=== PATIENT | female | born 1990 | race Caucasian/White ===

== ENCOUNTER 2016-04-19 10:11 | Emergency (ER) | payer MEDICAID ==
--- NOTE | 2016-04-19 10:34 | ER Document Report ---
ED Medical Screen (RME) - General Stated Complaint: VAGINAL BLEEDING Notes: , due november 11 onset: this am spotting, abdominal pressure occasionally denies cramping or abdominal pain, n/v OBGYN: does not have I have greeted and performed a rapid initial assessment of this patient. A comprehensive ED assessment and evaluation of the patient, analysis of test results and completion of the medical decision making process will be conducted by additional ED providers. TRAVEL OUTSIDE OF THE [place] IN LAST 30 DAYS: No - Related Data Allergies/Adverse Reactions: amoxicillin [Amoxicillin] Allergy (Severe, Verified 09/27/14 18:48) hives,severe diarrhea Past Medical History - Past Medical History Cardiac Medical History: Denies: Hx Pulmonary Embolism Pulmonary Medical History: Reports: Hx Asthma - as child Denies: Hx Sleep Apnea, Hx Tuberculosis Endocrine Medical History: Denies: Hx Hyperthyroidism, Hx Hypothyroidism GI Medical History: Reports: Hx Gastroesophageal Reflux Disease. Denies: Hx Hiatal Hernia, Hx Ulcer Psychiatric Medical History: Reports: Hx Bipolar Disorder Denies: Hx Depression, Hx Post Traumatic Stress Disorder, Hx Schizophrenia Infectious Medical History: Denies: Hx HIV Past Surgical History: Reports: Hx Section - Immunizations Hx Diphtheria, Pertussis, Tetanus Vaccination: Yes
[2016-04-19 10:35] VITALS: BP 116/78
[2016-04-19 11:41] LABS: ABSOLUTE LYMPHOCYTES (AUTO) 1.8 10^3/uL (0.5-4.7); ABSOLUTE MONOCYTES (AUTO) 0.5 10^3/uL (0.1-1.4); ABSOLUTE NEUT (AUTO) 5.6 10^3/uL (1.7-8.2); BASOPHILS % (AUTO) 0.3 % (0-2); EOSINOPHILS % (AUTO) 0.6 % (0-6); HEMATOCRIT 37.1 % (36.0-47.0); HEMOGLOBIN 12.8 g/dL (12.0-15.5); HGB HCT DIFFERENCE 1.3; LYMPHOCYTES % (AUTO) 22.7 % (13-45); MEAN CORPUSCULAR HEMOGLOBIN 30.6 pg (27.0-33.4); MEAN CORPUSCULAR HGB CONC 34.5 g/dL (32.0-36.0); MEAN CORPUSCULAR VOLUME 89 fl (80-97); MONOCYTES % (AUTO) 5.7 % (3-13); RED BLOOD COUNT 4.18 10^6/uL (3.72-5.28); SEGMENTED NEUTROPHILS % (AUTO) 70.7 % (42-78); WHITE BLOOD COUNT 7.9 10^3/uL (4.0-10.5)
[2016-04-19 11:57] LABS: APPEARANCE,URINE SLIGHTLY-CLOUDY; BILIRUBIN,URINE NEGATIVE (NEGATIVE); GLUCOSE, URINE NEGATIVE (NEGATIVE); KETONES,URINE TRACE mg/dL (NEGATIVE); LEUKOCYTE ESTERASE,URINE TRACE (NEGATIVE); NITRITE,URINE POSITIVE (NEGATIVE); PROTEIN,URINE NEGATIVE (NEGATIVE); URINE SPECIFIC GRAVITY 1.021; UROBILINOGEN,URINE NEGATIVE mg/dL (<2.0)
--- NOTE | 2016-04-19 13:37 | ER Document Report ---
ED GI/ - General Chief Complaint: Vaginal Pain Stated Complaint: VAGINAL BLEEDING Mode of Arrival: Ambulatory Information source: Patient Notes: Patient presents she for P1 complaining of lower pelvic abdominal pressure with vaginal spotting. Patient states pressure started yesterday with spotting today. Patient denies any urinary symptoms. Patient states she has not had an ultrasound to confirm this . TRAVEL OUTSIDE OF THE [place] IN LAST 30 DAYS: No - HPI Patient complains to provider of: Pelvic pain, Onset: Yesterday Timing/Duration: Gradual Quality of pain: Cramping Pain Level: 1 Context: Location: Pelvis Vaginal bleeding (Compared to normal period): Spotting Menstrual period history: Sexual history: Active Associated symptoms: denies: Dysuria, Fever, Nausea, Urinary hesitancy, Urinary frequency, Urinary retention, Urinary urgency, Vaginal discharge Exacerbated by: Denies Relieved by: Denies Similar symptoms previously: Yes Recently seen / treated by doctor: No - Related Data Allergies/Adverse Reactions: amoxicillin [Amoxicillin] Allergy (Severe, Verified 04/19/16 10:31) hives,severe diarrhea Past Medical History - General Information source: Patient Last Menstrual Period: currently - Social History Smoking Status: Never Smoker Chew tobacco use (# tins/day): No Frequency of alcohol use: None Drug Abuse: None Occupation: none Lives with: Family Family History: Reviewed & Not Pertinent Patient has suicidal ideation: No Patient has homicidal ideation: No - Past Medical History Cardiac Medical History: Denies: Hx Pulmonary Embolism Pulmonary Medical History: Reports: Hx Asthma - as child Denies: Hx Sleep Apnea, Hx Tuberculosis Endocrine Medical History: Denies: Hx Hyperthyroidism, Hx Hypothyroidism Renal/ Medical History: Denies: Hx Peritoneal Dialysis GI Medical History: Reports: Hx Gastroesophageal Reflux Disease. Denies: Hx Hiatal Hernia, Hx Ulcer Psychiatric Medical History: Reports: Hx Bipolar Disorder Denies: Hx Depression, Hx Post Traumatic Stress Disorder, Hx Schizophrenia Infectious Medical History: Denies: Hx HIV Past Surgical History: Reports: Hx Section - Immunizations Hx Diphtheria, Pertussis, Tetanus Vaccination: Yes Review of Systems - Review of Systems Constitutional: No symptoms reported. denies: Fever EENT: No symptoms reported Cardiovascular: No symptoms reported. denies: Chest pain Respiratory: No symptoms reported. denies: Cough, Short of breath Gastrointestinal: Abdominal pain - Lower pelvic cramping Genitourinary: No symptoms reported. denies: Dysuria, Flank pain Female Genitourinary: , Vaginal bleeding - Spotting. denies: Vaginal discharge Musculoskeletal: No symptoms reported. denies: Back pain Skin: No symptoms reported Hematologic/Lymphatic: No symptoms reported Neurological/Psychological: No symptoms reported Physical Exam - Vital signs Vitals: Temp Pulse Resp BP Pulse Ox 98 F 90 16 116/78 100 04/19/16 10:31 04/19/16 10:31 04/19/16 10:31 04/19/16 10:04/19/16 10:31 - General General appearance: Appears well, Alert In distress: None - HEENT Head: Normocephalic Eyes: Normal Conjunctiva: Normal Nasal: Normal Mouth/Lips: Normal Mucous membranes: Normal Neck: Normal, Supple. No: Lymphadenopathy - Respiratory Respiratory status: No respiratory distress Chest status: Nontender Breath sounds: Normal. No: Rales, Rhonchi, Stridor, Wheezing Chest palpation: Normal - Cardiovascular Rhythm: Regular Heart sounds: S1 appreciated, S2 appreciated Murmur: No - Abdominal Inspection: Normal Distension: No distension Bowel sounds: Normal Tenderness: Tender - Mild suprapubic Organomegaly: No organomegaly - Back Back: Normal, Nontender. No: CVA tenderness - Extremities General upper extremity: Normal inspection, Normal strength General lower extremity: Normal inspection, Normal strength - Neurological Neuro grossly intact: Yes Cognition: Normal Ozan Coma Scale Eye Opening: Spontaneous Crispin Coma Scale Verbal: Oriented Ozan Coma Scale Motor: Obeys Commands Ozan Coma Scale Total: 15 - Psychological Associated symptoms: Normal affect, Normal mood - Skin Skin Temperature: Warm Skin Moisture: Dry Skin Color: Normal Course - Re-evaluation Re-evalutation: 04/19/16 14:[address] Cavazos regarding patient presentation, agrees with plan of care. 04/19/16 15:50 Patient denies any concerns about possible sexually-transmitted infection. Offered pelvic examination, patient declines. Consulted with Dr. Cavazos regarding ultrasound report findings. Recommends outpatient follow-up with OB/ COAT AGENT provider for follow-up. - Vital Signs Vital signs: Temp Pulse Resp BP Pulse Ox 98 F 90 16 116/78 100 04/19/16 10:31 04/19/16 10:31 04/19/16 10:04/19/16 10:04/19/16 10:31 - Laboratory Result Diagrams: 04/19/16 11:20 Laboratory results interpreted by me: 04/19/16 04/19/16 11:20 11:20 Beta HCG, Quant 2026.50 H Urine Ketones TRACE H Urine Blood MODERATE H Urine Nitrite POSITIVE H Ur Leukocyte Esterase TRACE H 04/19/16 15:50 Labs- Entire Visit 04/19/16 04/19/16 04/19/16 11:20 11:20 11:20 WBC 7.9 RBC 4.18 Hgb 12.8 Hct 37.1 MCV 89 MCH 30.6 MCHC 34.5 RDW 13.0 Plt Count 242 Seg Neutrophils % 70.7 Lymphocytes % 22.7 Monocytes % 5.7 Eosinophils % 0.6 Basophils % 0.3 Absolute Neutrophils 5.6 Absolute Lymphocytes 1.8 Absolute Monocytes 0.5 Absolute Eosinophils 0.0 Absolute Basophils 0.0 Beta HCG, Quant 2026.50 H Total Beta HCG POSITIVE Urine Color Urine Appearance Urine pH Ur Specific [place] Urine Protein Urine Glucose (UA) Urine Ketones Urine Blood Urine Nitrite Urine Bilirubin Urine Urobilinogen Ur Leukocyte Esterase Urine WBC (Auto) Urine RBC (Auto) Urine Bacteria (Auto) Squamous Epi Cells Auto Urine Mucus (Auto) Urine Ascorbic Acid Blood Type A NEGATIVE Antibody Screen NEGATIVE Rhogam Indicated RHOGAM REQUESTED 04/19/16 11:20 WBC RBC Hgb Hct MCV MCH MCHC RDW Plt Count Seg Neutrophils % Lymphocytes % Monocytes % Eosinophils % Basophils % Absolute Neutrophils Absolute Lymphocytes Absolute Monocytes Absolute Eosinophils Absolute Basophils Beta HCG, Quant Total Beta HCG Urine Color YELLOW Urine Appearance SLIGHTLY-CLOUDY Urine pH 5.0 Ur Specific [place] 1.021 Urine Protein NEGATIVE Urine Glucose (UA) NEGATIVE Urine Ketones TRACE H Urine Blood MODERATE H Urine Nitrite POSITIVE H Urine Bilirubin NEGATIVE Urine Urobilinogen NEGATIVE Ur Leukocyte Esterase TRACE H Urine WBC (Auto) 3 Urine RBC (Auto) 1 Urine Bacteria (Auto) 3+ Squamous Epi Cells Auto 3 Urine Mucus (Auto) FEW Urine Ascorbic Acid NEGATIVE Blood Type Antibody Screen Rhogam Indicated - Diagnostic Test Radiology reviewed: Reports reviewed Discharge - Discharge Clinical Impression: Intrauterine in Qualifiers: Fetus number: single or unspecified fetus Qualified Code(s): O36.4XX0 - Maternal care for intrauterine , not applicable or unspecified UTI (urinary tract infection) Qualifiers: Urinary tract infection type: site unspecified Hematuria presence: with hematuria Qualified Code(s): N39.0 - Urinary tract infection, site not specified Condition: Stable Disposition: HOME, SELF-CARE Instructions: Nitrofurantoin ([facility]), Urinary Tract Infection ([facility]), Miscarriage Impending ([facility]), Rhogam ([facility]) Additional Instructions: Return immediately for any new or worsening symptoms Followup with your DEPUTY CLERK provider, call Friday to make a followup appointment Urine culture is pending, we will call if you need any different treatment Prescriptions: Nitrofurantoin/Nitrofuran Mac [Macrobid 100 mg Capsule] 1 tab PO BID #14 capsule Referrals: ARCHANA NERI FNP-C [Primary Care Provider] - [facility] - Follow up as needed [facility] [Provider Group] - 04/22/16
[2016-04-19] MEDS ORDERED: NITROFURANTOIN MONOHYD/M-CRYST 100 MG CAPSULE PO ONE (15:57)
== END 2016-04-19 16:15 | disposition left against medical advice (07) ==
LOC: ER 10:11
DX: O36.4XX0 Maternal care for intrauterine death, not applicable or unspecified (principal); N39.0 Urinary tract infection, site not specified; R10.2 Pelvic and perineal pain; N93.9 Abnormal uterine and vaginal bleeding, unspecified
CPT/HCPCS: 99281; 86900; 86901; 36415; 87086; 86850; 84702; 85025; 87088; 81001; 87186; 76817; 93976; J2790

== ENCOUNTER → 2016-12-13 | Outpatient (CLI) | payer MEDICAID ==
[2016-12-13 08:16] LABS: URINE PROTEIN 11.7 mg/dL (<12)
[2016-12-13 08:25] LABS: ABSOLUTE EOSINOPHILS # (AUTO) 0.1 10^3/uL (0.0-0.6); ABSOLUTE LYMPHOCYTES (AUTO) 2.2 10^3/uL (0.5-4.7); ABSOLUTE MONOCYTES (AUTO) 0.8 10^3/uL (0.1-1.4); ABSOLUTE NEUT (AUTO) 7.4 10^3/uL (1.7-8.2); ALANINE AMINOTRANSFERASE 11 U/L (9-52); ALBUMIN 3.5 g/dL (3.5-5.0); ALKALINE PHOSPHATASE 54 U/L (38-126); ANION GAP 10 (5-19); ASPARTATE AMINO TRANSFERASE 15 U/L (14-36); BASOPHILS % (AUTO) 0.1 % (0-2); BILIRUBIN,DIRECT 0.2 mg/dL (0.0-0.4); BILIRUBIN,TOTAL 0.2 mg/dL (0.2-1.3); BLOOD UREA NITROGEN 10 mg/dL (7-20); CALCIUM 9.1 mg/dL (8.4-10.2); CARBON DIOXIDE 18 mmol/L (22-30); CHLORIDE 109 mmol/L (98-107); CREATININE RESULT 0.49 mg/dL (0.52-1.25); EOSINOPHILS % (AUTO) 0.9 % (0-6); GLUCOSE 102 mg/dL (75-110); HEMATOCRIT 29.1 % (36.0-47.0); HEMOGLOBIN 10.7 g/dL (12.0-15.5); LDH 258 U/L (313-618); LYMPHOCYTES % (AUTO) 21.3 % (13-45); MEAN CORPUSCULAR HEMOGLOBIN 33.8 pg (27.0-33.4); MEAN CORPUSCULAR HGB CONC 36.8 g/dL (32.0-36.0); MEAN CORPUSCULAR VOLUME 92 fl (80-97); MONOCYTES % (AUTO) 7.3 % (3-13); POTASSIUM 3.8 mmol/L (3.6-5.0); RED BLOOD COUNT 3.17 10^6/uL (3.72-5.28); SEGMENTED NEUTROPHILS % (AUTO) 70.4 % (42-78); SODIUM 137.1 mmol/L (137-145); TOTAL PROTEIN 6.5 g/dL (6.3-8.2); URIC ACID 2.8 mg/dL (2.5-6.2); WHITE BLOOD COUNT 10.5 10^3/uL (4.0-10.5)
== END ==
LOC: OCH 07:49
DX: Z34.82 Encounter for supervision of other normal pregnancy, second trimester (principal)
CPT/HCPCS: 36415; 80053; 83615; 84156; 84550; 85025

== ENCOUNTER 2016-12-14 12:02 | Outpatient (CLI) | payer MEDICAID ==
[2016-12-14 12:52] LABS: APPEARANCE,URINE SLIGHTLY-CLOUDY; BILIRUBIN,URINE NEGATIVE (NEGATIVE); GLUCOSE, URINE NEGATIVE (NEGATIVE); KETONES,URINE NEGATIVE (NEGATIVE); LEUKOCYTE ESTERASE,URINE NEGATIVE (NEGATIVE); NITRITE,URINE NEGATIVE (NEGATIVE); PROTEIN,URINE NEGATIVE (NEGATIVE); URINE SPECIFIC GRAVITY 1.019; UROBILINOGEN,URINE NEGATIVE mg/dL (<2.0)
[2016-12-14 13:05] LABS: URINE BARBITURATES SCREEN NEGATIVE; URINE METHADONE SCREEN NEGATIVE; URINE OPIATES LOW NEGATIVE; URINE PHENCYCLIDINE SCREEN NEGATIVE
--- NOTE | 2016-12-14 13:46 | RADIOLOGY REPORT (SQ) ---
EXAM DESCRIPTION: U/S OB LIMITED COMPLETED DATE/TIME: 12/14/2016 1:18 pm REASON FOR STUDY: Abdominal trauma, check placenta wellbeing COMPARISON: None. TECHNIQUE: Limited transabdominal grayscale ultrasound for evaluation of specific requested obstetri tanika parameters. LIMITATIONS: None. FINDINGS: Anterior grade 1 placenta. Fetus breech presentation. heart rate 130. Cervix 3.0 cm and closed. IMPRESSION: LIMITED OBSTETRICAL ULTRASOUND WITH MEASURED PARAMETERS DELINEATED ABOVE. Trimester of : Second trimester - 13 weeks 1 day to 27 weeks 6 days. TECHNICAL DOCUMENTATION: JOB ID: [id number] [employer]- All Rights Reserved
== END 2016-12-14 14:05 | disposition home or self-care (01) ==
LOC: LC 12:02
PROVIDERS: ATTEND Obstetrics & Gynecology
PROC: 4A1HXCZ Monitoring of Products of Conception, Cardiac Rate, External Approach (ICD-10-PCS; principal; 2016-12-14)
DX: O36.8120 Decreased fetal movements, second trimester, not applicable or unspecified (principal); O9A.212 Injury, poisoning and certain other consequences of external causes complicating pregnancy, second trimester; S30.1XXA Contusion of abdominal wall, initial encounter; X58.XXXA Exposure to other specified factors, initial encounter; Z3A.21 21 weeks gestation of pregnancy
CPT/HCPCS: 76815; 80307; 81001

== ENCOUNTER 2017-01-27 14:36 | Emergency (ER) | payer MEDICAID ==
[2017-01-27] MEDS ORDERED: NORMAL SALINE 1000 ML 1,000 ML IV ONE ×2 (15:04→16:34)
--- NOTE | 2017-01-27 15:06 | ER Document Report ---
ED Medical Screen (RME) - General Chief Complaint: Chest Pain Stated Complaint: BLURRED VISION, HEADACHE Time Seen by Provider: 01/27/17 15:03 Notes: Patient states she has a high risk . She states she has had preeclampsia in the past. She is currently 27 weeks . She woke up this morning with racing heartbeat, blurry vision, and headache. TRAVEL OUTSIDE OF THE [place] IN LAST 30 DAYS: No - Related Data Allergies/Adverse Reactions: amoxicillin [Amoxicillin] Allergy (Severe, Verified 01/27/17 14:45) hives,severe diarrhea Home Medications: Current Home Medications Aspirin 81 mg PO DAILY 01/27/17 [History] Past Medical History - Past Medical History Cardiac Medical History: Denies: Hx Pulmonary Embolism Pulmonary Medical History: Reports: Hx Asthma - as child Denies: Hx Sleep Apnea, Hx Tuberculosis Endocrine Medical History: Denies: Hx Hyperthyroidism, Hx Hypothyroidism Renal/ Medical History: Denies: Hx Peritoneal Dialysis GI Medical History: Reports: Hx Gastroesophageal Reflux Disease. Denies: Hx Hiatal Hernia, Hx Ulcer Psychiatric Medical History: Reports: Hx Bipolar Disorder Denies: Hx Depression, Hx Post Traumatic Stress Disorder, Hx Schizophrenia Infectious Medical History: Denies: Hx HIV Past Surgical History: Reports: Hx Section - Immunizations Hx Diphtheria, Pertussis, Tetanus Vaccination: Yes Physical Exam - Vital signs Vitals: Temp Pulse Resp BP Pulse Ox 99.2 F 120 H 16 125/70 99 01/27/17 14:47 01/27/17 14:47 01/27/17 14:47 01/27/17 14:47 01/27/17 14:47 Course - Vital Signs Vital signs: Temp Pulse Resp BP Pulse Ox 99.2 F 120 H 16 125/70 99 01/27/17 14:47 01/27/17 14:47 01/27/17 14:47 01/27/17 14:47 01/27/17 14:47
[2017-01-27 16:05] LABS: AMORPHOUS SEDIMENT,URINE TRACE /HPF; APPEARANCE,URINE CLOUDY; BILIRUBIN,URINE NEGATIVE (NEGATIVE); GLUCOSE, URINE NEGATIVE (NEGATIVE); KETONES,URINE NEGATIVE (NEGATIVE); LEUKOCYTE ESTERASE,URINE TRACE (NEGATIVE); NITRITE,URINE NEGATIVE (NEGATIVE); PROTEIN,URINE NEGATIVE (NEGATIVE); URINE SPECIFIC GRAVITY 1.026; UROBILINOGEN,URINE NEGATIVE mg/dL (<2.0)
[2017-01-27 16:09] LABS: ABSOLUTE EOSINOPHILS # (AUTO) 0.1 10^3/uL (0.0-0.6); ABSOLUTE LYMPHOCYTES (AUTO) 1.8 10^3/uL (0.5-4.7); ABSOLUTE MONOCYTES (AUTO) 0.9 10^3/uL (0.1-1.4); ABSOLUTE NEUT (AUTO) 9.3 10^3/uL (1.7-8.2); BASOPHILS % (AUTO) 0.4 % (0-2); EOSINOPHILS % (AUTO) 0.7 % (0-6); HEMATOCRIT 30.5 % (36.0-47.0); HGB HCT DIFFERENCE 2.5; MEAN CORPUSCULAR HEMOGLOBIN 32.8 pg (27.0-33.4); MEAN CORPUSCULAR VOLUME 91 fl (80-97); MONOCYTES % (AUTO) 7.2 % (3-13); RED BLOOD COUNT 3.35 10^6/uL (3.72-5.28); RED CELL DISTRIBUTION WIDTH 12.9 % (11.5-14.0); SEGMENTED NEUTROPHILS % (AUTO) 76.7 % (42-78); WHITE BLOOD COUNT 12.1 10^3/uL (4.0-10.5)
--- NOTE | 2017-01-27 16:09 | ER Document Report ---
ED General - General Chief Complaint: Chest Pain Stated Complaint: BLURRED VISION, HEADACHE Time Seen by Provider: 01/27/17 15:03 Notes: The patient is a 26-year-old female, 27 weeks presents after she was waking up with fatigue and a headache. In addition, when she has worsening headache, she notices slightly blurry vision. She has had preeclampsia in the past and is worried that she has it again. Patient was also having mild shortness of breath, but this has resolved. She denies current chest pain, cough, fevers, hemoptysis, focal numbness, tingling, ataxia, neck stiffness, dysuria, abdominal pain or rash. TRAVEL OUTSIDE OF THE [place] IN LAST 30 DAYS: No - Related Data Allergies/Adverse Reactions: amoxicillin [Amoxicillin] Allergy (Severe, Verified 01/27/17 14:45) hives,severe diarrhea Home Medications: Current Home Medications Aspirin 81 mg PO DAILY 01/27/17 [History] Past Medical History - General Information source: Patient - Social History Smoking Status: Unknown if Ever Smoked Family History: Reviewed & Not Pertinent Patient has suicidal ideation: No Patient has homicidal ideation: No - Past Medical History Cardiac Medical History: Denies: Hx Pulmonary Embolism Pulmonary Medical History: Reports: Hx Asthma - as child Denies: Hx Sleep Apnea, Hx Tuberculosis Endocrine Medical History: Denies: Hx Hyperthyroidism, Hx Hypothyroidism Renal/ Medical History: Denies: Hx Peritoneal Dialysis GI Medical History: Reports: Hx Gastroesophageal Reflux Disease. Denies: Hx Hiatal Hernia, Hx Ulcer Psychiatric Medical History: Reports: Hx Bipolar Disorder Denies: Hx Depression, Hx Post Traumatic Stress Disorder, Hx Schizophrenia Infectious Medical History: Denies: Hx HIV Past Surgical History: Reports: Hx Section - Immunizations Hx Diphtheria, Pertussis, Tetanus Vaccination: Yes Review of Systems - Review of Systems Notes: REVIEW OF SYSTEMS: CONSTITUTIONAL: -fevers, -chills EENT: -eye pain, -difficulty swallowing, -nasal congestion CARDIOVASCULAR:-chest pain, -syncope. RESPIRATORY: -cough, -SOB GASTROINTESTINAL: -abdominal pain, - nausea, -vomiting, -diarrhea GENITOURINARY: -dysuria, -hematuria MUSCULOSKELETAL: -back pain, -neck pain SKIN: -rash or skin lesions. HEMATOLOGIC: -easy bruising or bleeding. LYMPHATIC: -swollen, enlarged glands. NEUROLOGICAL: -altered mental status or loss of consciousness, +headache, - neurologic symptoms PSYCHIATRIC: -anxiety, -depression. ALL OTHER SYSTEMS REVIEWED AND NEGATIVE. Physical Exam - Vital signs Vitals: Temp Pulse Resp BP Pulse Ox 99.2 F 120 H 16 125/70 99 01/27/17 14:47 01/27/17 14:47 01/27/17 14:47 01/27/17 14:47 01/27/17 14:47 - Notes Notes: PHYSICAL EXAMINATION: GENERAL: Well-appearing, well-nourished and in no acute distress. HEAD: Atraumatic, normocephalic. EYES: Pupils equal round and reactive to light, extraocular movements intact, sclera anicteric, conjunctiva are normal. ENT: nares patent, oropharynx clear without exudates. Moist mucous membranes. NECK: Normal range of motion, supple without lymphadenopathy LUNGS: Breath sounds clear to auscultation bilaterally and equal. No wheezes rales or rhonchi. HEART: Regular rate and rhythm without murmurs ABDOMEN: Soft, nontender, normoactive bowel sounds. Gravid abdomen. No guarding , no rebound. No masses appreciated. EXTREMITIES: Normal range of motion, no pitting or edema. No cyanosis. NEUROLOGICAL: Cranial nerves grossly intact. Normal speech, normal gait. Normal sensory and motor exams. PSYCH: Normal mood, normal affect. SKIN: Warm, Dry, normal turgor, no rashes or lesions noted. Course - Re-evaluation Re-evalutation: 01/27/17 18:11 Pt's headache and blurry vision completely resolved after Reglan , Benadryl and fluids. She has had this multiple times in the past and her headache is not consistent with meningitis, SAH, ICH or central venous thrombosis at this time due to lack of neuro symptoms. Her chest x-ray does not show any evidence of acute changes. Urine does not show any protein, she is not hypertensive, and her LFTs are normal. She has no signs of preeclampsia at this time. heart tones are normal. Pt's initial tachycardia resolved after IVF and pain control. She appeared anxious and this may also be leading to her slight tachycardia. Pt is not having any chest pain, shortness of breath or hypoxia to suggest PE. Spoke to patient about initial concern and signs to observe for PE. She has an appointment with [facility] morning. Given very strict return precautions and she understands. - Vital Signs Vital signs: Temp Pulse Resp BP Pulse Ox 99.2 F 120 H 14 104/65 100 01/27/17 14:47 01/27/17 14:47 01/27/17 18:22 01/27/17 18:22 01/27/17 18:22 - Laboratory Result Diagrams: 01/27/17 15:35 01/27/17 15:35 Laboratory results interpreted by me: 01/27/17 01/27/17 01/27/17 15:35 15:35 15:35 WBC 12.1 H RBC 3.35 L Hgb 11.0 L Hct 30.5 L Absolute Neutrophils 9.3 H Chloride 108 H Carbon Dioxide 21 L Creatinine 0.48 L Ur Leukocyte Esterase TRACE H Urine Ascorbic Acid 40 H - Diagnostic Test Radiology reviewed: Image reviewed, Reports reviewed Radiology results interpreted by me: CXR: NAD - EKG Interpretation by Me EKG shows normal: Sinus rhythm, [place], Intervals, QRS Complexes, ST-T Waves Rate: Tachycardia Discharge - Discharge Clinical Impression: Headache Qualifiers: Headache type: unspecified Headache chronicity pattern: unspecified pattern Intractability: not intractable Qualified Code(s): R51 - Headache Condition: Stable Disposition: HOME, SELF-CARE Additional Instructions: HEADACHE: The physician does not feel that the headache you are experiencing has a serious underlying cause. Most headaches are due to emotional stress, with resultant muscle tension (tension headache). Occasionally, headaches are secondary to changes in the blood vessels of the scalp (vascular headache and migraine headache). Sometimes, a headache is the first symptom of another developing illness, such as a viral infection. You have no evidence of stroke, bleeding, meningitis, or other serious cause of your headache. The treatment of headaches varies with the severity and cause of the pain. Not all headaches need pain shots. In fact, there is evidence that using narcotics for headaches may make them worse in the long run. The physician will determine the therapy that's in your best interest. If you develop a fever, if the headache is different from any you've previously experienced, or if the headache progressively worsens, then call your physician at once or go to the emergency room. REGLAN (METOCLOPRAMIDE): Reglan has been prescribed. This medicine affects the stomach and intestines. It can be used to treat nausea and vomiting, to prevent reflux of stomach acid up into the esophagus, or to increase the contractions of the stomach and intestines. It is often prescribed for esophagitis, and for paralysis of the stomach in diabetics. Reglan can cause either mild restlessness or drowsiness. You should contact the doctor at once if you become extremely restless, anxious, or cannot sleep, or if you develop uncontrollable motions of the lips, tongue, or jaw. Do not take alcohol with this medicine. Do not drive or operate machinery until you have been taking this medicine long enough to know how it affects you. Call the doctor if you develop abdominal pains, lightheadedness, black stool, or blood in the stool or vomitus. USE OF DIPHENHYDRAMINE: Diphenhydramine (Benadryl) is an antihistamine and has been recommended to help treat your headache and to prevent side effects of other medications used to treat headaches. The medication can be repeated four times daily. Age Elixir (12.5 mg/tsp) 25 mg pill adult 1-2 tabs Antihistamines may cause drowsiness, especially with the first dose. Do not operate machinery or drive while under the effects of the medication. Do not combine the medication with alcohol, or with any other medication without talking to your doctor. FOLLOW-UP CARE: If you have been referred to a physician for follow-up care, call the physician s office for an appointment as you were instructed or within the next two days. If you experience worsening or a significant change in your symptoms, notify the physician immediately or return to the Emergency Department at any time for re-evaluation. Referrals: GABBY PANIAGUA DO [SISSY DAMIAN] - Follow up as needed
[2017-01-27 16:31] LABS: ALANINE AMINOTRANSFERASE 16 U/L (9-52); ALBUMIN 3.8 g/dL (3.5-5.0); ALKALINE PHOSPHATASE 68 U/L (38-126); ANION GAP 9 (5-19); ASPARTATE AMINO TRANSFERASE 19 U/L (14-36); BILIRUBIN,DIRECT 0.2 mg/dL (0.0-0.4); BILIRUBIN,TOTAL 0.2 mg/dL (0.2-1.3); BLOOD UREA NITROGEN 11 mg/dL (7-20); CALCIUM 8.8 mg/dL (8.4-10.2); CARBON DIOXIDE 21 mmol/L (22-30); CHLORIDE 108 mmol/L (98-107); CREATININE RESULT 0.48 mg/dL (0.52-1.25); GLUCOSE 109 mg/dL (75-110); POTASSIUM 3.8 mmol/L (3.6-5.0); SODIUM 137.9 mmol/L (137-145); TOTAL PROTEIN 6.8 g/dL (6.3-8.2)
[2017-01-27] MEDS ORDERED: DIPHENHYDRAMINE HCL 50 MG/ML VIAL IV ONE (16:34)
[2017-01-27] MEDS ORDERED: METOCLOPRAMIDE HCL INJ/PF 10 MG/2 ML SDV IV ONE (16:34)
--- NOTE | 2017-01-27 17:07 | RADIOLOGY REPORT (SQ) ---
EXAM DESCRIPTION: CHEST SINGLE VIEW COMPLETED DATE/TIME: 01/27/2017 4:56 pm REASON FOR STUDY: SOB COMPARISON: None. EXAM PARAMETERS: NUMBER OF VIEWS: One view. TECHNIQUE: Single frontal radiographic view of the chest acquired. RADIATION DOSE: NA LIMITATIONS: None. FINDINGS: LUNGS AND PLEURA: No opacities, masses or pneumothorax. No pleural effusion. MEDIASTINUM AND HILAR STRUCTURES: No masses. Contour normal. HEART AND VASCULAR STRUCTURES: Heart normal in size. Normal vasculature. BONES: No acute findings. HARDWARE: None in the chest. OTHER: No other significant finding. IMPRESSION: NO ACUTE RADIOGRAPHIC FINDING IN THE CHEST. COMMENT: Patient known . Abdominal shielding used. TECHNICAL DOCUMENTATION: JOB ID: [id number] [employer]- All Rights Reserved
[2017-01-27 18:27] VITALS: BP 104/65
--- NOTE | 2017-01-28 09:39 | EKG REPORT ---
SEVERITY:- BORDERLINE ECG - SINUS TACHYCARDIA PROBABLE LEFT ATRIAL ABNORMALITY : Confirmed by: Alfonso Jorgensen 28-Jan-2017 09:38:40
== END 2017-01-27 18:33 | disposition home or self-care (01) ==
LOC: ER 14:36
DX: O26.892 Other specified pregnancy related conditions, second trimester (principal); R51 Headache; H53.8 Other visual disturbances; R00.0 Tachycardia, unspecified; O26.812 Pregnancy related exhaustion and fatigue, second trimester; Z3A.27 27 weeks gestation of pregnancy; Z87.59 Personal history of other complications of pregnancy, childbirth and the puerperium; Z88.0 Allergy status to penicillin
CPT/HCPCS: 93005; 99285; 96361; 96374; 96375; 36415; 85025; 80053; 81001; 71010; 93010; J1200; J2765; J7030

== ENCOUNTER 2017-02-04 16:21 | Emergency (ER) | payer MEDICAID ==
[2017-02-04 17:59] LABS: ABSOLUTE EOSINOPHILS # (AUTO) 0.1 10^3/uL (0.0-0.6); ABSOLUTE LYMPHOCYTES (AUTO) 2.3 10^3/uL (0.5-4.7); ABSOLUTE MONOCYTES (AUTO) 0.9 10^3/uL (0.1-1.4); ABSOLUTE NEUT (AUTO) 7.3 10^3/uL (1.7-8.2); BASOPHILS % (AUTO) 0.2 % (0-2); EOSINOPHILS % (AUTO) 0.8 % (0-6); HEMATOCRIT 31.3 % (36.0-47.0); HEMOGLOBIN 11.1 g/dL (12.0-15.5); LYMPHOCYTES % (AUTO) 21.6 % (13-45); MEAN CORPUSCULAR HEMOGLOBIN 32.6 pg (27.0-33.4); MEAN CORPUSCULAR HGB CONC 35.7 g/dL (32.0-36.0); MEAN CORPUSCULAR VOLUME 91 fl (80-97); MONOCYTES % (AUTO) 8.4 % (3-13); RED BLOOD COUNT 3.42 10^6/uL (3.72-5.28); RED CELL DISTRIBUTION WIDTH 12.8 % (11.5-14.0); WHITE BLOOD COUNT 10.5 10^3/uL (4.0-10.5)
[2017-02-04 18:20] LABS: ALANINE AMINOTRANSFERASE 23 U/L (9-52); ALBUMIN 3.7 g/dL (3.5-5.0); ALKALINE PHOSPHATASE 72 U/L (38-126); ANION GAP 11 (5-19); ASPARTATE AMINO TRANSFERASE 18 U/L (14-36); BILIRUBIN,DIRECT 0.2 mg/dL (0.0-0.4); BILIRUBIN,TOTAL 0.4 mg/dL (0.2-1.3); BLOOD UREA NITROGEN 9 mg/dL (7-20); CALCIUM 8.9 mg/dL (8.4-10.2); CARBON DIOXIDE 21 mmol/L (22-30); CHLORIDE 106 mmol/L (98-107); GLUCOSE 87 mg/dL (75-110); POTASSIUM 3.6 mmol/L (3.6-5.0); SODIUM 138.3 mmol/L (137-145); TOTAL PROTEIN 6.4 g/dL (6.3-8.2)
[2017-02-04] MEDS ORDERED: NORMAL SALINE 1000 ML 1,000 ML IV ONE (18:32)
--- NOTE | 2017-02-04 18:42 | ER Document Report ---
ED Dizziness/Weakness - General Chief Complaint: Dizziness Stated Complaint: LIGHTHEADED,SHORT OF BREATH Time Seen by Provider: 02/04/17 17:23 Mode of Arrival: Ambulatory Information source: Patient Notes: Patient is a 26-year-old female approximately 28 weeks who presents to the ER today for dizziness, shortness of breath, palpitations. Patient states that this is been going on for many months, however worse over the past 2 days. She was seen here for this last week as well. Patient states the shortness of breath is constant and feels "like something is sitting on my chest." Patient feels dizzy with a shortness of breath, like I am going to fall down." She states that sometimes it is like the room is spinning, and sometimes it is a lightheadedness feeling. She denies any chest pain ever. TRAVEL OUTSIDE OF THE [place] IN LAST 30 DAYS: No - Related Data Allergies/Adverse Reactions: amoxicillin [Amoxicillin] Allergy (Severe, Verified 02/04/17 16:30) hives,severe diarrhea Home Medications: Current Home Medications Ferrous Sulfate 1 tab PO TID 02/04/17 [History] Past Medical History - General Information source: Patient - Social History Smoking Status: Never Smoker Chew tobacco use (# tins/day): No Frequency of alcohol use: None Drug Abuse: None Family History: Reviewed & Not Pertinent Patient has suicidal ideation: No Patient has homicidal ideation: No - Past Medical History Cardiac Medical History: Denies: Hx Pulmonary Embolism Pulmonary Medical History: Reports: Hx Asthma - as child Denies: Hx Sleep Apnea, Hx Tuberculosis Endocrine Medical History: Denies: Hx Hyperthyroidism, Hx Hypothyroidism Renal/ Medical History: Denies: Hx Peritoneal Dialysis GI Medical History: Reports: Hx Gastroesophageal Reflux Disease. Denies: Hx Hiatal Hernia, Hx Ulcer Psychiatric Medical History: Reports: Hx Bipolar Disorder Denies: Hx Depression, Hx Post Traumatic Stress Disorder, Hx Schizophrenia Infectious Medical History: Denies: Hx HIV Past Surgical History: Reports: Hx Section - Immunizations Hx Diphtheria, Pertussis, Tetanus Vaccination: Yes Review of Systems - Review of Systems Constitutional: No symptoms reported EENT: No symptoms reported Cardiovascular: See HPI Respiratory: See HPI Gastrointestinal: No symptoms reported Genitourinary: No symptoms reported Female Genitourinary: No symptoms reported Musculoskeletal: No symptoms reported Skin: No symptoms reported Hematologic/Lymphatic: No symptoms reported Neurological/Psychological: See HPI Physical Exam - Vital signs Vitals: Temp Pulse Resp BP Pulse Ox 99.2 F 93 17 113/69 100 02/04/17 16:31 02/04/17 16:31 02/04/17 16:31 02/04/17 16:31 02/04/17 16:31 - Notes Notes: PHYSICAL EXAMINATION: GENERAL: Well-appearing and in no acute distress. HEAD: Atraumatic, normocephalic. EYES: Pupils equal round and reactive to light, extraocular movements intact, sclera anicteric, conjunctiva are normal. ENT: ear canals without erythema or foreign body, TMs pearly bryant with good bony landmarks, nares patent, oropharynx clear without exudates. Moist mucous membranes. NECK: Normal range of motion, supple without lymphadenopathy LUNGS: CTAB and equal. No wheezes rales or rhonchi. HEART: Regular rate and rhythm without murmurs ABDOMEN: Soft, no tenderness. No guarding, no rebound BACK: no vertebral tenderness, normal ROM GI/: no CVA tenderness EXTREMITIES: Normal range of motion, no pitting edema. No cyanosis. NEUROLOGICAL: Cranial nerves grossly intact. Normal sensory/motor exams. PSYCH: Normal mood, normal affect. SKIN: Warm, Dry, normal turgor, no rashes or lesions noted Course - Re-evaluation Re-evalutation: 02/04/17 18:39 lab work is unremarkable today, chest x-ray from last week reveal no acute pathology. Patient got dizzy after ambulation with pulse ox, remained at 100% on room air, however became tachycardic at 103 bpm. At this time CTA has been ordered. - Vital Signs Vital signs: Temp Pulse Resp BP Pulse Ox 99.2 F 93 17 113/69 100 02/04/17 16:31 02/04/17 16:31 02/04/17 16:31 02/04/17 16:31 02/04/17 16:31 - Laboratory Result Diagrams: 02/04/17 17:48 02/04/17 17:48 Laboratory results interpreted by me: 02/04/17 02/04/17 17:48 17:48 RBC 3.42 L Hgb 11.1 L Hct 31.3 L Carbon Dioxide 21 L Creatinine 0.50 L Discharge - Discharge Clinical Impression: Dizziness, Palpitations, SOB (shortness of breath) Condition: Stable Instructions: Dizziness ([facility]) Additional Instructions: Return immediately for any new or worsening symptoms. Follow up with primary care provider, call tomorrow to make followup appointment. Referrals: MARTÍN MCDONALD MD [Primary Care Provider] - Follow up as needed
--- NOTE | 2017-02-04 19:43 | RADIOLOGY REPORT (SQ) ---
EXAM DESCRIPTION: CTA CHEST COMPLETED DATE/TIME: 02/04/2017 7:25 pm REASON FOR STUDY: palpitations/sob/tachycardia COMPARISON: Chest x-ray dated 01/27/2017 TECHNIQUE: CT scan of the chest performed using helical scanning technique with dynamic intravenous contrast injection. Images reviewed with lung, soft tissue and bone windows. Reconstructed coronal and sagittal MPR images reviewed. Additional 3 dimensional post-processing performed to develop Maximal Intensity Projection images (IL P). All images stored on PACS. All CT scanners at this facility use dose modulation, iterative reconstruction, and/or weight based d osing when appropriate to reduce radiation dose to as low as reasonably achievable (ALARA). [facility]: Dose Right [facility]: CareDose [facility]: Dose Right [facility]: Teradose 4D [facility]: Artimplant AB CONTRAST TYPE AND DOSE: contrast/concentration: Isovue 370.00 mg/ml; Total Contrast Delivered: 58.0 ml; Total Saline Delivered: 70.0 ml Contrast bolus optimized for the pulmonary arteries. Not diagnostic for the aorta. RENAL FUNCTION: None required. The patient is less than 50 years old. RADIATION DOSE: CT Rad equipment meets quality standard of care and radiation dose reduction techniq ues were employed. CTDIvol: 4.8 - 11.3 mGy. DLP: 193 mGy-cm. . LIMITATIONS: None. FINDINGS: LUNGS AND PLEURA: No masses, infiltrates, pneumothorax. No pleural effusions, calcificati ons. AORTA AND GREAT VESSELS: No aneurysm. Contrast bolus not optimized for the aorta. HEART: No pericardial effusion. No significant coronary artery calcifications. PULMONARY ARTERIES: No emboli visualized in the main pulmonary arteries or the segmental branches. HILAR AND MEDIASTINAL STRUCTURES: No identified masses or abnormal nodes. HARDWARE: None in the chest. UPPER ABDOMEN: No significant findings. Limited exam. THYROID AND OTHER SOFT TISSUES: No masses. No adenopathy. BONES: No acute or significant finding. 3D MIPS: Confirm above findings. OTHER: No other significant finding. IMPRESSION: NORMAL CTA OF THE CHEST. NO PULMONARY EMBOLI. COMMENT: Quality ID # [id number]: Final reports with documentation of one or more dose reduction techniques (e.g., Automated exposure control, adjustment of the mA and/or kV according to patient size, use of iterative reconstruction technique) TECHNICAL DOCUMENTATION: JOB ID: [id number]- All Rights Reserved
[2017-02-04 21:23] VITALS: BP 128/71
== END 2017-02-04 21:24 | disposition home or self-care (01) ==
LOC: ER 16:21
DX: R42 Dizziness and giddiness (principal); R06.02 Shortness of breath; R00.2 Palpitations; Z79.899 Other long term (current) drug therapy
CPT/HCPCS: 99284; 96360; 36415; 85025; 80053; 71275; J7030

== ENCOUNTER 2017-04-13 20:11 | Inpatient (IN) | payer MEDICAID ==
[~2017-04-13 20:11] MED LIST: DEXAMETHASONE SOD PHOSPHATE INJ 4 MG/1 ML VIAL ONE; KETOROLAC TROMETHAMINE 60 MG/2 ML SDV ONE; METOCLOPRAMIDE HCL INJ/PF 10 MG/2 ML SDV ONE; ONDANSETRON HCL INJ/PF 4 MG/2 ML SDV ONE
[2017-04-13 20:45] LABS: APPEARANCE,URINE CLEAR; BILIRUBIN,URINE NEGATIVE (NEGATIVE); COLOR,URINE YELLOW; GLUCOSE, URINE NEGATIVE (NEGATIVE); KETONES,URINE NEGATIVE (NEGATIVE); LEUKOCYTE ESTERASE,URINE NEGATIVE (NEGATIVE); NITRITE,URINE NEGATIVE (NEGATIVE); PROTEIN,URINE NEGATIVE (NEGATIVE); URINE SPECIFIC GRAVITY 1.014; UROBILINOGEN,URINE NEGATIVE mg/dL (<2.0)
[2017-04-13 20:48] LABS: AMNISURE (ROM) POSITIVE (NEGATIVE)
[2017-04-13] MEDS ORDERED: RINGERS SOLUTION,LACTATED 1,000 ML IV PRN (20:53)
[2017-04-13 21:01] LABS: URINE AMPHETAMINES SCREEN NEGATIVE; URINE BARBITURATES SCREEN NEGATIVE; URINE BENZODIAZEPINES SCREEN NEGATIVE; URINE COCAINE SCREEN NEGATIVE; URINE METHADONE SCREEN NEGATIVE; URINE PHENCYCLIDINE SCREEN NEGATIVE
[2017-04-13 21:03] LABS: URINE MARIJUANA (THC) SCREEN UNCONFIRMED POSITIVE
[2017-04-13] MEDS ORDERED: CEFAZOLIN 1 GM/D5W RTU 1 GM/50 ML RTUPB IV ONE (21:16)
[2017-04-13] MEDS ORDERED: CITRIC ACID/SODIUM CITRATE ORAL SOLN 15 ML UDCUP ONE (21:16)
[2017-04-13] MEDS ORDERED: MISOPROSTOL 0.2 MG TABLET ONE (21:16)
[2017-04-13 21:19] LABS: ABSOLUTE EOSINOPHILS # (AUTO) 0.1 10^3/uL (0.0-0.6); ABSOLUTE LYMPHOCYTES (AUTO) 2.7 10^3/uL (0.5-4.7); ABSOLUTE MONOCYTES (AUTO) 1.1 10^3/uL (0.1-1.4); ABSOLUTE NEUT (AUTO) 9.4 10^3/uL (1.7-8.2); BASOPHILS % (AUTO) 0.2 % (0-2); EOSINOPHILS % (AUTO) 0.8 % (0-6); HEMATOCRIT 32.5 % (36.0-47.0); HEMOGLOBIN 11.3 g/dL (12.0-15.5); LYMPHOCYTES % (AUTO) 20.5 % (13-45); MEAN CORPUSCULAR HEMOGLOBIN 31.4 pg (27.0-33.4); MEAN CORPUSCULAR HGB CONC 34.9 g/dL (32.0-36.0); MEAN CORPUSCULAR VOLUME 90 fl (80-97); MONOCYTES % (AUTO) 8.4 % (3-13); PLATELET COUNT 246 10^3/uL (150-450); RED BLOOD COUNT 3.61 10^6/uL (3.72-5.28); RED CELL DISTRIBUTION WIDTH 13.1 % (11.5-14.0); SEGMENTED NEUTROPHILS % (AUTO) 70.1 % (42-78); TOTAL CELLS COUNTED % (AUTO) 100 %; WHITE BLOOD COUNT 13.3 10^3/uL (4.0-10.5)
[2017-04-13] MEDS ORDERED: MIDAZOLAM 2 MG/2 ML INJ ONE (21:24)
[2017-04-13] MEDS ORDERED: OXYTOCIN/NORMAL SALINE 20 UNIT/1,000 ML RTUINJ ONE (21:24)
[2017-04-13] MEDS ORDERED: FENTANYL CITRATE INJ/PF 100 MCG/2 ML AMPUL ONE (21:24)
[2017-04-13] MEDS ORDERED: OXYTOCIN 10 UNIT/ML VIAL ONE (21:24)
[2017-04-13] MEDS ORDERED: EPHEDRINE SULFATE INJ 50 MG/1 ML AMPULE ONE (21:24)
[2017-04-13] MEDS ORDERED: DIPHENHYDRAMINE HCL 50 MG/ML VIAL IV PRN (21:59)
[2017-04-13] MEDS ORDERED: MORPHINE SULFATE 10 MG/ML INJ IV PRN (21:59)
[2017-04-13] MEDS ORDERED: ONDANSETRON HCL INJ/PF 4 MG/2 ML SDV IV PRN (21:59)
[2017-04-13] MEDS ORDERED: FENTANYL CITRATE INJ/PF 100 MCG/2 ML AMPUL IV PRN ×3 (21:59)
[2017-04-13] MEDS ORDERED: MEPERIDINE HCL/PF INJ 25 MG/1 ML DISP.SYRIN IV PRN (21:59)
[2017-04-13] MEDS ORDERED: PROMETHAZINE HCL INJ 25 MG/1 ML VIAL IV PRN ×3 (21:59→22:07)
[2017-04-13] MEDS ORDERED: KETOROLAC TROMETHAMINE INJ/PF 30 MG/1 ML SDV IV SCH (22:00)
[2017-04-13] MEDS ORDERED: OXYCODONE-ACETAMINOPHEN 5-325 MG TABLET PO PRN ×2 (22:07)
[2017-04-13] MEDS ORDERED: DEXTROSE 50%-WATER 25 GM/50 ML DISP.SYRIN IV PRN ×2 (22:07)
[2017-04-13] MEDS ORDERED: MEASLES,MUMPS&RUBELLA VACC/PF 0.5 ML VIAL SUBCUT PRN (22:07)
[2017-04-13] MEDS ORDERED: GLUCAGON,HUMAN RECOMB 1 MG INJ SUBCUT PRN (22:07)
[2017-04-13] MEDS ORDERED: OXYTOCIN/NORMAL SALINE 20 UNIT/1,000 ML RTUINJ IV PRN (22:07)
[2017-04-13] MEDS ORDERED: ACETAMINOPHEN 325 MG TABLET PO PRN (22:07)
[2017-04-13] MEDS ORDERED: SIMETHICONE 80 MG TAB.CHEW PO PRN (22:07)
[2017-04-13] MEDS ORDERED: DIPH/PERTUSS(ACELL)/TETANUS VAC/PF 0.5 ML SYR (>=10YO) IM PRN (22:07)
[2017-04-13] MEDS ORDERED: HYDROMORPHONE HCL INJ/PF 2 MG/ML AMPULE IV PRN (22:07)
[2017-04-13] MEDS ORDERED: DEXTROSE 40% GEL 15 GM TUBE PO PRN ×2 (22:07)
[2017-04-13] MEDS ORDERED: ACETAMINOPHEN 100 ML IV ONE (22:12)
[2017-04-14] MEDS ORDERED: IBUPROFEN 800 MG TABLET PO SCH
--- NOTE | 2017-04-14 00:26 | Admission Physical ---
Datetime Report Generated by CPN: 04/14/2017 00:25 CURRENT ADMISSION Chief Complaint: Suspected Ruptured Membranes Indication for Induction: Not Applicable Indication for Induction: Term, Intrauterine Admit Plan: Admit to Unit ALLERGIES Medication Allergies: Yes Medication Allergies: amoxicillin/SV/hives,severe di (04/14/2017) Medication Allergies: amoxicillin/SV/hives,severe di (02/04/2017) Medication Allergies: amoxicillin/SV/hives,severe di (04/19/2016) Latex: No Latex Allergies Food Allergies: none Environmental Allergies: none OBSTETRICAL HISTORY EDC: 04/21/2017 00:00 : 6 Para: 2 Term: 1 : 1 SAB: 1 IAB: 0 Ectopic: 0 Livin Cesareans: 1 VBACs: 1 Multiple Births: 0 Gestational Diabetes: No Rh Sensitization: No Incompetent Cervix: No HODA: No Infertility: No ART Treatment: No Uterine Anomaly: No IUGR: No Hx Previous C/S: Yes Macrosomia: No Hx Loss/Stillborn: Yes PIH: No Hx : No Placenta Previa/Abruption: No Depression/PP Depression: No PTL/PROM: No Post Hemorrhage: No Current Procedures: Ultrasound; NST Obstetrical History Comments: G1 - 2009 SAB - 2012, male G3 - 2013 SAB G4 2013 SAB 2014 , demise G6 - current SEE RECORDS Alcohol: No Marijuana : Yes Marijuana Comments: patient denies. positive urine screen on 04/13/17 Cocaine: No Other Illicit Drugs: No Cigarettes: Former Smoker. [id number] MEDICAL HISTORY Diabetes: No Blood Transfusion: No Pulmonary Disease (Asthma, TB): No Breast Disease: No Hypertension: No [employer] Surgery: No Heart Disease: No Hosp/Surgery: Yes Autoimmune Disorder: No Anesthetic Complications: No Kidney Disease: No Abnormal Pap Smear: No Neuro/Epilepsy: No Psychiatric Disorders: No Other Medical Diseases: No Hepatitis/Liver Disease: No Significant Family History: No Varicosities/Phlebitis: No Trauma/Violence : No Thyroid Dysfunction: No INFECTIOUS HISTORY Gonorrhea: No Genital Herpes: No Chlamydia: No Tuberculosis: No Syphilis: No Hepatitis: No HIV/AIDS Exposure: No Rash or Viral Illness: No HPV: No PHYSICAL EXAM General: Normal HEENT: Normal Neurologic: Normal Thyroid: Normal Heart: Normal Lungs: Normal Breast: Deferred Back: Normal Abdomen: Normal Genitourinary Exam: Normal Extremities: Normal DTRs: Normal Pelvic Type: Adequate Vital Signs: Reviewed MEMBRANES Pooling: Positive Membranes: Ruptured FETUS A EGA: 38.6 Decelerations: None Admit Comment: prior IUFD with pre-eclampsia PLANS FOR LABOR AND DELIVERY Labor and Delivery: None Pain Management: Epidural Feeding Preference: Formula Benefit of Breast Feed Discussed: Yes Circumcision: Yes INFORMED CONSENT Signature: with User ID: [email or web address]
[2017-04-14] MEDS ORDERED: RINGERS SOLUTION,LACTATED 1,000 ML IV PRN (03:48)
[2017-04-14] MEDS ORDERED: DIPH/PERTUSS(ACELL)/TETANUS VAC/PF 0.5 ML SYR (>=10YO) IM PRN (03:48)
[2017-04-14] MEDS ORDERED: ACETAMINOPHEN 325 MG TABLET PO PRN (03:48)
[2017-04-14] MEDS ORDERED: HYDROMORPHONE HCL INJ/PF 2 MG/ML AMPULE IV PRN (03:48)
[2017-04-14] MEDS ORDERED: SIMETHICONE 80 MG TAB.CHEW PO PRN (03:49)
[2017-04-14] MEDS ORDERED: MEASLES,MUMPS&RUBELLA VACC/PF 0.5 ML VIAL SUBCUT PRN (03:49)
[2017-04-14] MEDS ORDERED: PROMETHAZINE HCL INJ 25 MG/1 ML VIAL IV PRN (03:49)
[2017-04-14] MEDS ORDERED: OXYCODONE-ACETAMINOPHEN 5-325 MG TABLET PO PRN (03:49)
[2017-04-14] MEDS: OXYCODONE-ACETAMINOPHEN 5-325 MG TABLET PO PRN ×2 (03:52→21:14)
[2017-04-14] MEDS: IBUPROFEN 800 MG TABLET PO SCH ×4 (04:58→23:40)
[2017-04-14] MEDS: KETOROLAC TROMETHAMINE INJ/PF 30 MG/1 ML SDV IV SCH ×2 (06:25→13:36)
[2017-04-14 07:27] LABS: HEMATOCRIT 30.5 % (36.0-47.0); HEMOGLOBIN 10.4 g/dL (12.0-15.5); MEAN CORPUSCULAR HEMOGLOBIN 30.6 pg (27.0-33.4); MEAN CORPUSCULAR HGB CONC 34.1 g/dL (32.0-36.0); MEAN CORPUSCULAR VOLUME 90 fl (80-97); PLATELET COUNT 200 10^3/uL (150-450); RED CELL DISTRIBUTION WIDTH 13.1 % (11.5-14.0); WHITE BLOOD COUNT 20.4 10^3/uL (4.0-10.5)
--- NOTE | 2017-04-14 09:00 | PDOC PROGRESS REPORT ---
Subjective-OB Subjective: Post Delivery Day: 26 year old. Denies any needs at this time s/p repeat c section last night sitting up not ambulating yet, robertson in place dressing dry and intact encouraged ambulation abdomen nontender, slightly distended and tympanic abdominal binder and pt will ambulate -flatus continue to monitor pain management Physical Exam (OB) Vital Signs: Temp Pulse Resp BP Pulse Ox 97.9 F 59 L 18 99/50 L 99 04/14/17 07:36 04/14/17 07:36 04/14/17 07:36 04/14/17 07:36 04/14/17 07:36 Intake & Output 04/13/17 04/14/17 04/15/17 06:59 06:59 06:59 Intake Total 600 Output Total 1350 Balance -750 Weight 61.36 kg - Dressing Removed: No - Mediofe D&I Incision: Dressing - Lochia Lochia Amount: Scant < 10 ml Lochia Color: Rubra/Red - Abdomen Description: Tender, Soft, Flat Hernia Present: No Fundal Description: Firm, Midline Fundal Height: u/u - u/2 Objective-Diagnostic Laboratory: 04/14/17 06:59 04/13/17 04/13/17 04/13/17 20:29 21:00 21:00 WBC 13.3 H RBC 3.61 L Hgb 11.3 L Hct 32.5 L MCV 90 MCH 31.4 MCHC 34.9 RDW 13.1 Plt Count 246 Seg Neutrophils % 70.1 Lymphocytes % 20.5 Monocytes % 8.4 Eosinophils % 0.8 Basophils % 0.2 Absolute Neutrophils 9.4 H Absolute Lymphocytes 2.7 Absolute Monocytes 1.1 Absolute Eosinophils 0.1 Absolute Basophils 0.0 Urine Color YELLOW Urine Appearance CLEAR Urine pH 7.0 Ur Specific [place] 1.014 Urine Protein NEGATIVE Urine Glucose (UA) NEGATIVE Urine Ketones NEGATIVE Urine Blood NEGATIVE Urine Nitrite NEGATIVE Ur Leukocyte Esterase NEGATIVE Blood Type A NEGATIVE Antibody Screen POSITIVE 04/14/17 06:59 WBC 20.4 H RBC 3.40 L Hgb 10.4 L Hct 30.5 L MCV 90 MCH 30.6 MCHC 34.1 RDW 13.1 Plt Count 200 Seg Neutrophils % Lymphocytes % Monocytes % Eosinophils % Basophils % Absolute Neutrophils Absolute Lymphocytes Absolute Monocytes Absolute Eosinophils Absolute Basophils Urine Color Urine Appearance Urine pH Ur Specific [place] Urine Protein Urine Glucose (UA) Urine Ketones Urine Blood Urine Nitrite Ur Leukocyte Esterase Blood Type Antibody Screen
[2017-04-14] MEDS ORDERED: DOCUSATE SODIUM 100 MG CAPSULE PO SCH (10:00)
[2017-04-14] MEDS ORDERED: PRENATAL VITAMIN W DHA CAPSULE PO SCH (10:00)
[2017-04-14] MEDS: DOCUSATE SODIUM 100 MG CAPSULE PO SCH ×2 (10:20→17:40)
[2017-04-14] MEDS: PRENATAL VITAMIN W DHA CAPSULE PO SCH (10:21)
[2017-04-14] MEDS ORDERED: DIPHENHYDRAMINE HCL 50 MG CAPSULE PO ONE (22:00)
[2017-04-15] MEDS: IBUPROFEN 800 MG TABLET PO SCH (05:59)
--- NOTE | 2017-04-15 09:36 | PDOC DISCHARGE SUMMARY ---
Final Diagnosis Discharge Date: 04/15/17 - Final Diagnosis (1) Delivered by section Is this a current diagnosis for this admission?: Yes Discharge Data - Discharge Medication Prescriptions: Oxycodone HCl/Acetaminophen [Percocet 5-325 mg Tablet] 1 tab PO Q4HP PRN #30 tablet PRN Reason: Ibuprofen [Motrin 800 mg Tablet] 800 mg PO Q8HP PRN #60 tablet PRN Reason: Home Medications: Vit/Iron Fum/Folic AC [ Tablet] 1 each PO DAILY 12/14/16 Ferrous Sulfate 1 tab PO TID 02/04/17 Ibuprofen [Motrin 800 mg Tablet] 800 mg PO Q8HP PRN #60 tablet 04/15/17 Oxycodone HCl/Acetaminophen [Percocet 5-325 mg Tablet] 1 tab PO Q4HP PRN #30 tablet 04/15/17 Reason(s) for Admission: Onset of Labor, Ceasarean Section-Repeat Procedures: NST Intrapartum Procedure(s): : Low Cervical, Transverse - Diagnosis Test Laboratory: Temp Pulse Resp BP Pulse Ox 98.4 F 83 16 119/76 100 04/15/17 08:16 04/15/17 08:16 04/15/17 08:16 04/15/17 08:16 04/15/17 08:16 04/13/17 04/13/17 04/14/17 20:29 21:00 06:59 RBC 3.61 L 3.40 L Hgb 11.3 L 10.4 L Hct 32.5 L 30.5 L Urine Opiates Screen NEGATIVE - Discharge information/Instructions Discharge Activity: Balance Activity w/Rest, No Lifting Over 10 Pounds, No Lifting/Push/Pulling, Pelvic Rest, No tub bath Discharge Diet: Regular Disposition: HOME, SELF-CARE Follow up with: [facility] in: 1, Weeks
[2017-04-15 09:46] LABS: ABSOLUTE EOSINOPHILS # (AUTO) 0.1 10^3/uL (0.0-0.6); ABSOLUTE LYMPHOCYTES (AUTO) 2.7 10^3/uL (0.5-4.7); ABSOLUTE MONOCYTES (AUTO) 0.8 10^3/uL (0.1-1.4); ABSOLUTE NEUT (AUTO) 7.4 10^3/uL (1.7-8.2); BASOPHILS % (AUTO) 0.3 % (0-2); EOSINOPHILS % (AUTO) 0.5 % (0-6); HEMATOCRIT 28.4 % (36.0-47.0); LYMPHOCYTES % (AUTO) 24.5 % (13-45); MEAN CORPUSCULAR HEMOGLOBIN 31.7 pg (27.0-33.4); MEAN CORPUSCULAR HGB CONC 35.2 g/dL (32.0-36.0); MEAN CORPUSCULAR VOLUME 90 fl (80-97); MONOCYTES % (AUTO) 6.9 % (3-13); PLATELET COUNT 199 10^3/uL (150-450); RED BLOOD COUNT 3.14 10^6/uL (3.72-5.28); SEGMENTED NEUTROPHILS % (AUTO) 67.8 % (42-78); TOTAL CELLS COUNTED % (AUTO) 100 %
[2017-04-15] MEDS: DOCUSATE SODIUM 100 MG CAPSULE PO SCH (10:12)
[2017-04-15] MEDS: PRENATAL VITAMIN W DHA CAPSULE PO SCH (10:12)
[2017-04-15 11:21] VITALS: BP 106/62
[2017-04-15] MEDS ORDERED: MEDROXYPROGESTERONE ACET INJ 150 MG/1 ML VIAL IM ONE (11:30)
--- NOTE | 2017-04-20 23:38 | Non Stress Test Report ---
Non Stress Test Datetime Report Generated by CPN: 04/20/2017 23:38 DEMOGRAPHIC EGA NST: 38.6 INDICATION Indication for Study: Other Indication for Study (NST) Other: LC MONITORING Monitor Explained: Monitor Explained; Test Explained; Patient Verbalized Understanding Time on Monitor: 04/13/2017 20:35 Time off Monitor: 04/13/2017 21:30 NST Duration: 55 NST INTERVENTIONS NST Interventions: PO Hydration; IV Fluids Physician Notified NST: Portillo BABY A: [id number] BABY A Movement : Present Contraction Frequency : irritability FHR Baseline : 125 Accelerations : 15X15 Decelerations : None NST Review: Meets Criteria for Reactive NST NST Review and Verified By : earl WALTONT Results: Reactive NST REPORT Report Trigger: Send Report
--- NOTE | 2017-04-20 23:39 | Delivery Summary ---
Del Sum A-C Datetime Report Generated by CPN: 04/20/2017 23:38 DELIVERY PERSONNEL DELIVERY PERSONNEL: [id number] Delivery Doctor:: Juarez Portillo MD Anesthesiologist:: Aldo Yi MD EXECUTIVE PILOT:: Radha Arias EXECUTIVE PILOT Labor and Delivery Nurse:: Rachael Blunt RNplayer manager Nurse:: Kathy Cabrera RN Tie Inspector/RANCH MANAGER: ST Magalis Tie Inspector/RANCH MANAGER: Kelle Thomas, ST MATERNAL INFORMATION Delivery Anesthesia: Spinal Medications After Delivery: Pitocin Bolus-Please Comment; Pitocin Drip 20 Units/1000ml NSS Meds After Delivery Comment: ns with pitocin 20 units/ivf bolus Maternal Complications: None Provider Comments: PROM with prior LABOR SUMMARY EDC: 04/21/2017 00:00 No. Babies in Womb: 1 Attempted: No Labor Anesthesia: Epidural LABOR INFORMATION Reason for Induction: Not Applicable Onset of Labor: 04/13/2017 19:45 Oxytocin: N/A Group B Beta Strep: negative Antibiotics # of Doses: 1 Antibiotics Time of Last Dose: 2129 Name of Antibiotic Given: Ancef Steroids Given: None Reason Steroids Not Administered: Not Applicable MEMBRANES Membranes Rupture Method: Spontaneous Rupture of Membranes: 04/13/2017 19:45 Length of Rupture (hr): 2.12 Amniotic Fluid Color: Clear Amniotic Fluid Amount: Large Amniotic Fluid Odor: Normal STAGES OF LABOR Stage 3 hr: 0 Stage 3 min: 1 Total Time in Labor hr: 2 Total Time in Labor min: 8 VAGINAL DELIVERY Episiotomy: None Laceration #1: None Laceration Extension #1: N/A Laceration Repair: Not Applicable Sponge Count Correct: N/A CSECTION DELIVERY Primary Indication: Repeat Elective Secondary Indication: PROM CSection Urgency: Non-Scheduled CSection Incidence: Repeat Labor: Labor Elective: N/A CSection Incision: Lower Uterine Transverse BABY A INFORMATION Infant Delivery Date/Time: 04/13/2017 21:52 Method of Delivery: Born in Route : No : N/A Forceps: N/A Vacuum Extraction: N/A Shoulder Dystocia : No PRESENTATION/POSITION BABY A Presentation: Cephalic Cephalic Presentation: Vertex Vertex Position: Right Occipital Anterior Breech Presentation: Patricio PLACENTA INFORMATION BABY A Placenta Delivery Time : 04/13/2017 21:53 Placenta Method of Delivery: Manual Removal Placenta Status: Delivered SCORES BABY A Heart Rate 1 min: >100 bpm Resp Effort 1 min: Good Cry Reflex Irritability 1 min: Cough or Sneeze or Pulls Away Muscle Tone 1 min: Active Motion Color 1 min: Body [place], Extremities Blue Resuscitation Effort 1 min: Tactile Stimulation SCORE 1 MIN: 9 Heart Rate 5 min: >100 bpm Resp Effort 5 min: Good Cry Reflex Irritability 5 min: Cough or Sneeze or Pulls Away Muscle Tone 5 min: Active Motion Color 5 min: Body [place], Extremities Blue Resuscitation Effort 5 min: Tactile Stimulation SCORE 5 MIN: 9 INFORMATION BABY A Gestational Age at Delivery: 38.6 Gestational Status: Early Term- 37- 38.6 Weeks Outcome : Liveborn Infant Condition : Stable Infant Sex: Male IDENTIFICATION BABY A Infant Verification Date/Time: 04/13/2017 21:56 ID Band Number: [id number] Mother's Name Verified: Yes Infant RN Verifying : rn jhonatan Additional Verifying Personnel: earl blunt WEIGHT/LENGTH BABY A Birthweight (gm): 2800 Infant Weight (lb): 6 Infant Weight (oz): 3 Infant Length (in): 18.75 Infant Length (cm): 47.63 CORD INFORMATION BABY A No. Cord Vessels: 3 Nuchal Cord : Around Neck x1, Loose Cord Blood Taken: Yes-For Eval (Mom's Blood Type - or O+) Suction: Mouth; Nose ASSESSMENT BABY A Complications: None Physical Findings at Delivery: Within Normal Limits Infant Respirations: Appears Normal Skin to Skin: No Respiratory Assistant/ALS Called : No Care By: rawhide bone roller matters and rn jhonatan Transferred To: Remains with Mother BABY B INFORMATION : N/A SIGNATURES Signature: with User ID: [email or web address]
--- NOTE | 2017-05-21 11:44 | OPERATIVE REPORT E ---
Operative Report NAME: OREN AMBRIZ : 1990 AGE: 26Y DATE OF SURGERY: 04/15/2017 ROOM: 226 PREOPERATIVE DIAGNOSES: 1. IUP AT 38.6 WEEKS. 2. PRIOR SECTION. POSTOPERATIVE DIAGNOSES: 1. IUP AT 38.6 WEEKS. 2. PRIOR SECTION. OPERATION: Repeat low transverse section, delivery of a viable male. 's of 9 and 9, 6 pounds 3 ounces. ESTIMATED BLOOD LOSS: Less than 500 mL. SURGEON: Siddhartha GOODWIN M.D. ANESTHESIA: Spinal. TISSUE REMOVED OR ALTERED: Placenta. PROCEDURE: The patient was placed in the supine position and rolled on her right side, prepped and draped in a sterile fashion. A Pfannenstiel incision was made through an existing Pfannenstiel eschar and excision extended through the subcutaneous tissue and fascia with sharp dissection. Fascia sharply divided and rectus muscle bluntly and sharply divided. Parietal peritoneum was entered with sharp dissection. The uterus was nicked in the midline, extended bilaterally with blunt dissection. The was then delivered through the uterine abdominal incision. Nose and mouth suctioned with a bulb syringe. Cord was clamped. The infant was passed from the table. Placenta was manually extracted. Uterus closed in 2 layers using 0 Vicryl first with a running stitch and the second a Lembert stitch imbricating the first layer. Hemostasis was noted. Fascia was closed with 0 Vicryl in a running fashion and skin was closed with subcu absorbable bran. Urine remained clear throughout the procedure. She was taken to recovery room in good condition and the infant to nursery in good condition. DICTATING PHYSICIAN: Siddhartha GOODWIN M.D. [id number] PHY#: [id number] ID: [id number] JOB#: [id number] ACCT: [id number] cc:Siddhartha GOODWIN M.D. >
== END 2017-04-15 12:10 | disposition home or self-care (01) | DRG 766 ==
LOC: LC 20:11 → LR 20:59 → 2S 04-14 00:24 → UNDODISIN 04-14 00:33
PROVIDERS: ADMIT Obstetrics & Gynecology Gynecology; ATTEND Obstetrics & Gynecology Gynecology
PROC: 10D00Z1 Extraction of Products of Conception, Low, Open Approach (ICD-10-PCS; principal; 2017-04-13)
PROC: 4A1HXCZ Monitoring of Products of Conception, Cardiac Rate, External Approach (ICD-10-PCS; 2017-04-13)
PROC: 3E0234Z Introduction of Serum, Toxoid and Vaccine into Muscle, Percutaneous Approach (ICD-10-PCS; 2017-04-15)
DX: O34.211 Maternal care for low transverse scar from previous cesarean delivery (principal); O26.893 Other specified pregnancy related conditions, third trimester; O69.81X0 Labor and delivery complicated by cord around neck, without compression, not applicable or unspecified; Z67.11 Type A blood, Rh negative; Z88.1 Allergy status to other antibiotic agents; Z87.891 Personal history of nicotine dependence; Z3A.38 38 weeks gestation of pregnancy; Z37.0 Single live birth
CPT/HCPCS: 1961; 36415; 59025; 80307; 81005; 84112; 85025; 85027; 85461; 86592; 86850; 86870; 86900; 86901; 94799; G0480; J0131; J0690; J1050; J1100; J1170; J1885; J2250; J2405; J2590; J2765; J2790; J3010; J3490; J7120